=== PATIENT | male | born 1955 | race Caucasian/White ===

== ENCOUNTER 2024-12-27 11:00 | Emergency (ER) | payer MEDICARE ==
--- NOTE | 2024-12-27 12:39 | ED ---
Headache HPI - General Chief Complaint: Headache Stated Complaint: Lump on Head Time Seen by Provider: 12/27/24 11:17 Source: patient, RN notes reviewed Mode of arrival: ambulatory Limitations: no limitations - History of Present Illness MD Complaint: headache Onset/Timin -: days(s) Onset Description: gradual Location: frontal Severity scale (1-10): 5 Quality: throbbing Consistency: constant, colicky Improves With: nothing Worsens With: none Context: occurred at rest Associated Symptoms: other (Occasional lightheadedness when walking, strain behind eyes) Treatments Prior to Arrival: Acetaminophen - Related Data Allergies Allergy/AdvReac Type Severity Reaction Status Date / Time iodine Allergy Rash/Hives Verified 12/27/24 11:18 Review of Systems ROS Statement: Those systems with pertinent positive or pertinent negative responses have been documented in the HPI. ROS Other: All systems not noted in ROS Statement are negative. Past Medical History Past Medical History: Seizure Disorder Additional Past Medical History / Comment(s): chronic back pain, traumatic brain injury, pneumothorax Past Surgical History: Adenoidectomy, Tonsillectomy Past Psychological History: Anxiety Smoking Status: Current every day smoker General Exam Limitations: no limitations General appearance: alert, in no apparent distress Head exam: Present: atraumatic, normocephalic, other (Small, fluctuant area of edema with associated tenderness on crown of head. Negative overlying erythema, warmth, discharge, open wound) Eye exam: Present: normal appearance, PERRL, EOMI, other (Hints exams unremarkable). Absent: scleral icterus, conjunctival injection, periorbital swelling Pupils: Present: normal accommodation ENT exam: Present: normal exam, mucous membranes moist Neck exam: Present: normal inspection. Absent: tenderness, meningismus, lymphadenopathy Respiratory exam: Present: normal lung sounds bilaterally. Absent: respiratory distress, wheezes, rales, rhonchi, stridor, accessory muscle use Cardiovascular Exam: Present: regular rate, normal rhythm, normal heart sounds. Absent: systolic murmur, diastolic murmur, rubs, gallop, clicks GI/Abdominal exam: Present: soft, normal bowel sounds. Absent: distended, tenderness, guarding, rebound, rigid Extremities exam: Present: normal inspection, full ROM, normal capillary refill. Absent: tenderness, pedal edema, joint swelling, calf tenderness Back exam: Present: normal inspection Neurological exam: Present: alert, oriented X3, CN II-XII intact (Cranial nerves tested and intact), other (Kramer stroke and cerebellar tests unremarkable) Psychiatric exam: Present: normal affect, normal mood Skin exam: Present: warm, dry, intact, normal color. Absent: rash Course Vital Signs 12/27/24 11:11 Temperature 97.8 F Pulse Rate 52 L Respiratory 20 Rate Blood Pressure 131/78 O2 Sat by Pulse 99 Oximetry Medical Decision Making - Medical Decision Making Was pt. sent in by a medical professional or institution (, PA, BOARD OF EDUCATION SECRETARY, urgent care, hospital, or retirement...) When possible be specific @ -[No] Did you speak to anyone other than the patient for history (EMS, parent, family, police, friend...)? What history was obtained from this source @ -[No] Did you review nursing and triage notes (agree or disagree)? Why? @ -[I reviewed and agree with nursing and triage notes] Were old charts reviewed (outside hosp., previous admission, EMS record, old EKG, old radiological studies, urgent care reports/EKG's, retirement records)? Report findings @ -[No old charts were reviewed] Differential Diagnosis (chest pain, altered mental status, abdominal pain women, abdominal pain men, vaginal bleeding, weakness, fever, dyspnea, syncope, headache, dizziness, GI bleed, back pain, seizure, CVA, palpatations, mental health, musculoskeletal)? @ -Differential Headache: Migraine, tension, cluster, carbon monoxide, central venous thrombosis, pension karma temporal arteritis, acute closure glaucoma, intercranial hemorrhage, mastoiditis, sinusitis, head injury, this is not meant to be an all-inclusive list. Differential Dizziness: Benign paroxysmal positional Vertigo, Meniere's disease, otitis media, acoustic neuroma, vertebrobasilar insufficiency, cerebellar stroke, encephalitis, hypovolemic, arrhythmia, coronary artery syndrome, anemia, this is not meant to be an all-inclusive list EKG interpreted by me (3pts min.). @ -Sinus bradycardia with incomplete RBBB and LAD. No ST deviation or T wave inversion. Ventricular rate 46 bpm, JULIANA 161 ms, QRS 91 ms, QTc 417 ms. X-rays interpreted by me (1pt min.). @ -[None done] CT interpreted by me (1pt min.). @ -[None done] U/S interpreted by me (1pt. min.). @ -[None done] What testing was considered but not performed or refused? (CT, X-rays, U/S, labs)? Why? @ -[None] What meds were considered but not given or refused? Why? @ -[None] Did you discuss the management of the patient with other professionals (professionals i.e. , PA, BOARD OF EDUCATION SECRETARY, lab, RT, psych nurse, social worker psychiatric, senior payroll manager, teacher, juvenile probation officer, patient case manager)? Give summary @ -[No] Was smoking cessation discussed for >3mins.? @ -[No] Was critical care preformed (if so, how long)? @ -[No] Were there social determinants of health that impacted care today? How? (Homelessness, low income, unemployed, alcoholism, drug addiction, transportation, low edu. Level, literacy, decrease access to med. care, long term, rehab)? @ -[No] Was there de-escalation of care discussed even if they declined (Discuss DNR or withdrawal of care, Hospice)? DNR status @ -[No] What co-morbidities impacted this encounter? (DM, HTN, Smoking, COPD, CAD, Cancer, CVA, ARF, Chemo, Hep., AIDS, mental health diagnosis, sleep apnea, morbid obesity)? @ -[None] Was patient admitted / discharged? Hospital course, mention meds given and route, prescriptions, significant lab abnormalities, going to OR and other pertinent info. @ -[hospital course] Undiagnosed new problem with uncertain prognosis? @ -[No] Drug Therapy requiring intensive monitoring for toxicity (Heparin, Nitro, Insulin, Cardizem)? @ -[No] Were any procedures done? @ -[No] Diagnosis/symptom? @ -[default] Acute, or Chronic, or Acute on Chronic? @ -Acute Uncomplicated (without systemic symptoms) or Complicated (systemic symptoms)? @ -Complicated Side effects of treatment? @ -[No] Exacerbation, Progression, or Severe Exacerbation? @ -[No] Poses a threat to life or bodily function? How? (Chest pain, [place], NH, pneumonia, PE, COPD, DKA, ARF, appy, cholecystitis, CVA, Diverticulitis, Homicidal, Suicidal, threat to staff... and all critical care pts) @ -[No] Disposition Clinical Impression: Headache Disposition: HOME SELF-CARE Condition: Fair Additional Instructions: Follow-up with PCP/neurology for further evaluation of headaches and for normal pressure hydrocephalus workup Is patient prescribed a controlled substance at d/c from ED?: No Referrals: Gene Dahl DO [Primary Care Provider] - 1-2 days Shravan Thornton MD [STAFF PHYSICIAN] - 1-2 days Time of Disposition: 14:18
--- NOTE | 2024-12-27 14:14 | CT ---
EXAMINATION TYPE: CT brain wo con DATE OF EXAM: 12/27/2024 COMPARISON: None CLINICAL INDICATION: Male, 69 years old with history of Headache without neurodeficits, off-balance; PHH, TURNER. Off-balance. CT DLP: 1140.4 mGycm Automated exposure control for dose reduction was used. FINDINGS: The ventricles are markedly enlarged and the sulci over the convexities and basal cisterns are mildly enlarged. The findings are consistent with moderate to marked generalized atrophy with greater centr al component versus normal pressure hydrocephalus. There is no mass effect or shift of midline struct ures. No abnormal density is seen throughout the brain parenchyma. There is no acute intra or extra-axial h emorrhage. The posterior fossa is grossly normal. The intraorbital contents. Normal symmetric. Visualized paranasal sinuses and mastoid air cells are well aerated. IMPRESSION: 1. No acute bleed or mass effect. 2. Moderate to marked atrophy with greater central component versus normal pressure hydrocephalus. IMPRESSION: [facility] Iman Tolentino, , 12/27/2024 2:12 PM
[2024-12-27 15:13] VITALS: BP 152/85; PULSE 54; RESP 18; TEMP 98
== END 2024-12-27 15:13 | disposition home or self-care (01) ==
LOC: EC 11:00
DX: R51.9 Headache, unspecified (principal); F17.200 Nicotine dependence, unspecified, uncomplicated; Z91.041 Radiographic dye allergy status
CPT/HCPCS: 70450; 93005; 99284